=== PATIENT | male | born 1975 | race Caucasian/White ===

== ENCOUNTER 2024-04-19 12:08 | Emergency (ER) | payer OTHER, SELFPAY ==
[2024-04-19 12:22] VITALS: BP 147/78; PULSE 98; RESP 17; TEMP 37.1; O2SAT 97; BMI 54.1
--- NOTE | 2024-04-19 12:30 | DI.US.S_ITS ---
PROCEDURE: US PERIPH VENOUS LOW EXTREM LT INDICATIONS: r/o DVT TECHNIQUE: Real-time imaging, as well as color and pulse Doppler interrogation, were performed of the lower extremity deep veins from the inguinal ligament to the popliteal fossa, with documentation of the visualized calf veins. COMPARISON: None. FINDINGS: The common femoral, femoral, popliteal, and the visualized calf veins are normally compressible, and free of intraluminal thrombus. Color and pulse Doppler demonstrate normal phasic intraluminal flow. There is normal augmentation response to distal compression maneuver. Large suprapatellar fluid collection measures 8.0 x 2.4 x 8.6 cm, probably reflects joint effusion in the suprapatellar recess IMPRESSION: No findings of lower extremity deep venous thrombosis. Approved by: Vikas Harrell M.D. on 04/19/2024 at 13:15
--- NOTE | 2024-04-19 12:39 | ED_ITS ---
HPI - Extremity Problem <Minal Candelaria PA-C - Last Filed: 04/19/24 17:12> General Chief complaint: Extremity Problem,Nontraumatic Stated complaint: knee swelling and px x 4days Time Seen by Provider: 04/19/24 12:30 Source: patient Mode of arrival: Ambulatory History of Present Illness HPI Narrative: 48yo M with hx left leg DVT; morbid obesity presents with left leg pain and swelling behind and lateral to left knee for 3 days. Pain has become quite severe and is affecting his ability to walk. It started as pain behind his left knee right at the bend in the knee and over time now it has progressed to be pain that is more feeling like it is in the joint itself and up above the knee on the left side. 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 He has not had an opportunity to elevate his leg at rest. He describes the pain as a constant ache that feels worse with putting pressure/pressing on his knee on the outside or with walking. He states he had a blood clot in the same leg 3 years ago when he had COVID. He denies any recent travel, long periods of immobility he is a nonsmoker. Also denies shortness of breath recent illness and has otherwise been in his usual state of health. Related Data Previous Rx's Medication Instructions Recorded hydrocodone 5 mg-acetaminophen 325 1 tab PO TID PRN pain 3 days #12 04/19/24 mg tablet tabs prednisone 20 mg tablet 40 mg (2 x 20 mg) PO DAILY 5 days 04/19/24 #10 tabs Allergies Allergy/AdvReac Type Severity Reaction Status Date / Time No Known Drug Allergies Allergy Verified 04/19/24 12:22 Review of Systems <Minal Candelaria PA-C - Last Filed: 04/19/24 17:12> Review of Systems Narrative: See HPI Patient History <Minal Candelaria PA-C - Last Filed: 04/19/24 17:12> Social History Smoking Status: Never smoker Smoking Status: Never smoker Substance Use Type: does not use Exam <Minal Candelaria PA-C - Last Filed: 04/19/24 17:12> Narrative Exam Narrative: GENERAL: 48 year old patient appears stated age. Morbidly obese patient, in mild distress. HEAD: Atraumatic. Normocephalic. EYES: Pupils equal round and reactive. Extraocular motions intact. No scleral icterus. No injection or drainage. ENT: Nose without bleeding, purulent drainage. Airway patent. NECK: Trachea midline. CARDIOVASCULAR: Regular rate and rhythm without murmurs, gallops, or rubs. RESPIRATORY: Clear to auscultation. Breath sounds equal bilaterally. No wheezes, rales, or rhonchi. GASTROINTESTINAL: Abdomen soft, non-tender, nondistended. EXTREMITIES: There is notable swelling superiorly and lateral to the left knee with associated tenderness and very slight warmth present but no erythema noted. There is slight tenderness to the popliteal fossa. There is pain with active range of motion of the left knee. Some pain with passive range of motion but less pronounced. Distal pulses are intact and strong some psoriasis spots noted to the skin of bilateral legs chronic for patient. No rashes, wounds or erythema noted. No edema or joint tenderness. BACK: Nontender without deformity or crepitance. No flank tenderness. NEURO: AOx3. SKIN: See extremities No rash or erythema of visible areas Initial Vital Signs Initial Vital Signs: Vital Signs Temperature 98.7 F 04/19/24 12:22 Pulse Rate 98 H 04/19/24 12:22 Respiratory Rate 17 04/19/24 12:22 Blood Pressure 147/78 H 04/19/24 12:22 Pulse Oximetry 97 04/19/24 12:22 Oxygen Delivery Method Room Air 04/19/24 12:22 <Mac Manrique DO - Last Filed: 04/19/24 17:13> Initial Vital Signs Initial Vital Signs: Vital Signs Temperature 98.7 F 04/19/24 12:22 Pulse Rate 98 H 04/19/24 12:22 Respiratory Rate 17 04/19/24 12:22 Blood Pressure 147/78 H 04/19/24 12:22 Pulse Oximetry 97 04/19/24 12:22 Oxygen Delivery Method Room Air 04/19/24 12:22 Course <Minal Candelaria PA-C - Last Filed: 04/19/24 17:12> Orders Ordered: ED Orders 04/19/24 12:30 US periph venous low extrem lt Stat 04/19/24 14:05 XR knee LT 3V Stat Vital Signs Vital signs: Vital Signs - 8 hr 04/19/24 12:22 04/19/24 16:07 Temperature 98.7 F Pulse Rate 98 H 84 Respiratory Rate 17 20 Blood Pressure 147/78 H 150/93 H Pulse Oximetry 97 94 Oxygen Delivery Method Room Air Room Air <Mac Manrique DO - Last Filed: 04/19/24 17:13> Orders Ordered: ED Orders 04/19/24 12:30 US periph venous low extrem lt Stat 04/19/24 14:05 XR knee LT 3V Stat Vital Signs Vital signs: Vital Signs - 8 hr 04/19/24 12:22 04/19/24 16:07 Temperature 98.7 F Pulse Rate 98 H 84 Respiratory Rate 17 20 Blood Pressure 147/78 H 150/93 H Pulse Oximetry 97 94 Oxygen Delivery Method Room Air Room Air MDM - Extremity (Nontraumatic) <Minal Candelaria PA-C - Last Filed: 04/19/24 17:12> Differential Diagnosis Differential diagnosis: Likely deep vein thrombosis of lower extremity and other (Knee joint effusion, ruptured Velasco's cyst, knee sprain, strain) Imaging Data US - DVT: My Impression: Agree with Radiology interpretation Radiologist's Impression: [place] [address] Ultrasound Report Signed Patient: Faisal Aiken MR#: [id number] : 1975 Acct:[id number] Age/Sex: 48 / M Date of Service: 04/19/24 Loc: ED Accession Number: [id number] Procedure: US periph venous low extrem lt Ordering Provider: Minal Candelaria PA-C PROCEDURE: US PERIPH VENOUS LOW EXTREM LT INDICATIONS: r/o DVT TECHNIQUE: Real-time imaging, as well as color and pulse Doppler interrogation, were performed of the lower extremity deep veins from the inguinal ligament to the popliteal fossa, with documentation of the visualized calf veins. COMPARISON: None. FINDINGS: The common femoral, femoral, popliteal, and the visualized calf veins are normally compressible, and free of intraluminal thrombus. Color and pulse Doppler demonstrate normal phasic intraluminal flow. There is normal augmentation response to distal compression maneuver. Large suprapatellar fluid collection measures 8.0 x 2.4 x 8.6 cm, probably reflects joint effusion in the suprapatellar recess IMPRESSION: No findings of lower extremity deep venous thrombosis. Approved by: Vikas Harrell M.D. on 04/19/2024 at 13:15 Extremity x-ray #1: My Impression: Agree with Radiology interpretation Radiologist's Impression: [address] [address] XRay Report Signed Patient: Faisal Aiken MR#: [id number] : 1975 Acct:[id number] Age/Sex: 48 / M Date of Service: 04/19/24 Loc: ED Accession Number: [id number] Procedure: XR knee LT 3V Ordering Provider: Minal Candelaria PA-C PROCEDURE: XR KNEE LT 3V INDICATIONS: left knee pain; swelling lateral/sup to knee TECHNIQUE: 3 views of the knee were acquired. COMPARISON: None. FINDINGS: Bones: No fractures or dislocations. No suspicious bony lesions. Soft tissues: Large joint effusion. No suspicious soft tissue calcifications. IMPRESSION: Large joint effusion. No fracture Approved by: Vikas Harrell M.D. on 04/19/2024 at 13:45 MDM Narrative Medical decision making narrative: This is a obese 48-year-old male with a history of left leg DVT 3 years ago after COVID infection presenting today with concern for 3 days of left knee pain initially in the popliteal fossa and then progressing to the anterior lateral knee. With associated swelling. No known injury per patient. Ultrasound exam shows no evidence of DVT however he does have a fluid collection/knee joint effusion. X-ray obtained is consistent with this showing a knee joint effusion. There is very slight heat present but no erythema I have low suspicion for an infectious process. His exam is not consistent with a septic arthritis. His vital signs are unremarkable today and he has had absolutely no other symptoms. As he is very overweight/obese suspect it is possible that he may have sustained some trauma/damage to his knee without realizing it. Given that his pain started in the popliteal fossa and then progressed to lateral knee with increased swelling, I am somewhat suspicious for a Velasco cyst with rupture. Recommend he see Orthopedics for further evaluation. Their information is pro vided today in his discharge paperwork. He was placed in crutches and a knee immobilizer given a prescription for prednisone for inflammation and swelling, as well as short course of hydrocodone to be used as needed if Tylenol and ibuprofen are not effective. Strongly advised to elevate his leg as much as possible use Brian wrap or the knee immobilizer for compression. Minimize weight- bearing. Return precautions provided, follow-up plan discussed, all questions answered. Discharge Plan Departure Patient Disposition: Home Clinical Impression: Effusion of knee joint, left Acute knee pain Qualifiers: Laterality: left Qualified Code(s): M25.562 - Pain in left knee Activity Restrictions/Additional Instructions: *You have been diagnosed with [left knee joint effusion] *What to do: *Please continue to take your regular medications as directed. [2] New medication prescriptions sent to your pharmacy: [Prednisone and hydrocodone] [ ] New medication written as a paper prescription [ ] No new medications given *Please follow up with your primary care provider in 2-3 days, call for an appointment. Let them know you were seen in the Emergency Department and that we ask that you be seen in follow up. We will electronically transmit a record of today's note if your PCP is in our system. We performed ultrasound today as well as an x-ray to look at the cause of your left knee pain and swelling. You have a fluid collection there. Based on your exam I think it is very unlikely it is an infection however you definitely have some inflammation and swelling/fluid present there which is causing her pain. We provided you with a knee stabilizer and crutches today I would like you to do your best to stay off of your knee and elevate it when you were at rest and not out up and about, I also would like you to see Orthopedics for further evaluation as you did not sustain any known injury and it would be good to see a specialist for further evaluation of your symptoms. You should call the office number listed below and let them know you want to be seen I also recommend you follow up closely with your primary care provider. If you do develop new or concerning symptoms please make sure you seek re-evaluation. In addition to steroid medicine to help with inflammation and swelling I did prescribe a short course of stronger pain medicine try your Tylenol and ibuprofen or NSAID medication 1st but if you feel you need something stronger you can use a stronger pain medicine. There was no evidence of DVT seen on your ultrasound. I hope you are feeling better soon. *If you do not have a primary care provider please contact the [facility] Resource line at [phone]. They will ask some questions about your medical history and help get you set up with a doctor in the community. *Return to Emergency Department if you should have any new, worsening or concerning symptoms, such as [fever greater than 101 F, shaking chills, worsening pain, persistent vomiting or other bothersome symptoms] Prescriptions: New prednisone 20 mg tablet 40 mg PO DAILY 5 Days Qty: 10 0RF hydrocodone-acetaminophen 5-325 mg tablet 1 tab PO TID PRN (Reason: pain) 3 Days Qty: 12 0RF Referrals: Demario Avila MD [Physician] - (left knee joint effusion no known injury; obese) Miscellaneous,MD Jose [Primary Care Provider] - Stand Alone Forms: Patient Portal/API/Survey ED Sign-out <Mac Manrique DO - Last Filed: 04/19/24 17:13> Cosign ED Attending Cosignature Attestation: Dr Manrique Co-Sign Statement: I was available for consultation during this patient's emergency department visit. This chart is signed by myself for administrative purposes only. I did not have direct contact with this patient during this visit. They were seen independently by the APC.
--- NOTE | 2024-04-19 14:05 | DI.RAD.S_ITS ---
PROCEDURE: XR KNEE LT 3V INDICATIONS: left knee pain; swelling lateral/sup to knee TECHNIQUE: 3 views of the knee were acquired. COMPARISON: None. FINDINGS: Bones: No fractures or dislocations. No suspicious bony lesions. Soft tissues: Large joint effusion. No suspicious soft tissue calcifications. IMPRESSION: Large joint effusion. No fracture Approved by: Vikas Harrell M.D. on 04/19/2024 at 13:45
[2024-04-19 16:07] VITALS: BP 150/93; PULSE 84; RESP 20; O2SAT 94
== END 2024-04-19 16:27 | disposition home or self-care (01) ==
PROVIDERS: Emergency Provider Student in an Organized Health Care Education/Training Program
DX: M25.462 Effusion, left knee (principal); M25.562 Pain in left knee; E66.01 Morbid (severe) obesity due to excess calories; Z68.43 Body mass index [BMI] 50.0-59.9, adult
CPT/HCPCS: 29530; 73562; 93971; 99283

== ENCOUNTER 2024-04-27 12:26 | Emergency (ER) | payer OTHER, SELFPAY ==
[2024-04-27 12:35] VITALS: BP 119/78; PULSE 87; RESP 18; TEMP 36.7; O2SAT 94; BMI 54.1
--- NOTE | 2024-04-27 14:51 | DI.US.S_ITS ---
PROCEDURE: US PERIP VENOUS LOW EXTREM LT INDICATIONS: EDEMA TECHNIQUE: Real-time imaging, as well as color and pulse Doppler interrogation, were performed of the lower extremity deep veins from the inguinal ligament to the popliteal fossa, with documentation of the visualized calf veins. COMPARISON: [facility], , [facility] VENOUS LOW EXTREM LT, 04/19/2024, 13:11. FINDINGS: The common femoral, femoral, popliteal, and the visualized calf veins are normally compressible, and free of intraluminal thrombus. Color and pulse Doppler demonstrate normal phasic intraluminal flow. There is normal augmentation response to distal compression maneuver. IMPRESSION: No findings of lower extremity deep venous thrombosis. Dictated by: Jamin Thomas M.D. on 04/27/2024 at 16:20 Approved by: Jamin Thomas M.D. on 04/27/2024 at 16:20
--- NOTE | 2024-04-27 14:57 | DI.RAD.S_ITS ---
PROCEDURE: XR KNEE LT 3V INDICATIONS: knee pain TECHNIQUE: 3 views of the knee were acquired. COMPARISON: [facility], CR, XR KNEE LT 3V, 04/19/2024, 14:09. FINDINGS: Bones: No fractures or dislocations. No suspicious bony lesions. Soft tissues: There is a large suprapatellar bursa joint effusion. IMPRESSION: Large suprapatellar bursa effusion. Findings have progressed since previous study. Dictated by: Chula Brenner M.D. on 04/27/2024 at 15:30 Approved by: Chula Brenner M.D. on 04/27/2024 at 15:33
--- NOTE | 2024-04-27 17:24 | ED.EXTPRO ---
HPI - Extremity Problem <Luis Carlos Chu PA-C - Last Filed: 04/27/24 17:34> General Chief complaint: Extremity Problem,Nontraumatic Stated complaint: knee px not getting better Time Seen by Provider: 04/27/24 13:41 History of Present Illness HPI Narrative: 48-year-old male returns to the ED for continued left knee pain. patient was seen in the ED on 04/19 for left sided knee pain, had a negative DVT an x-ray that showed a suprapatellar effusion but no fractures or dislocations. Patient was discharged home with hydrocodone and prednisone. Patient followed up with Dr. Avila from ortho on 04/20, he suspected patient's symptoms more most likely from arthritis or gout. He explained to patient that this was not a surgical problem, asked patient to return in 2 weeks to consider a cortisone injection in the knee, since patient was already on oral prednisone. Patient states that he has been wearing a knee immobilizer since he was seen in the ED. Patient states that his knee is painful and stiff when he tries to flex and extend it without the immobilizer. Patient denies numbness, tingling, weakness, fever, chills, swelling, redness. Patient states that he is out of the hydrocodone. Related Data Allergies Allergy/AdvReac Type Severity Reaction Status Date / Time No Known Drug Allergies Allergy Verified 04/19/24 12:22 Review of Systems <Luis Carlos Chu PA-C - Last Filed: 04/27/24 17:34> Constitutional Constitutional: Denies chills, Denies fatigue, Denies fever(s), Denies frequent falls, Denies lethargy and Denies weakness Eyes Eyes: Denies change in vision, Denies eye discharge, Denies irritation and Denies loss of vision ENT Ears, Nose, Mouth, and Throat: Denies change in voice, Denies dizziness, Denies neck pain, Denies sore throat and Denies throat swelling Cardiovascular Cardiovascular: Denies chest pain, Denies irregular heart rhythm, Denies lightheadedness, Denies palpitations, Denies dyspnea, Denies dyspnea on exertion and Denies orthopnea Respiratory Respiratory: Denies cough, Denies dyspnea, Denies dyspnea on exertion and Denies wheezing Gastrointestinal Gastrointestinal: Denies abdominal pain, Denies change in bowel habits, Denies diarrhea, Denies nausea and Denies vomiting Musculoskeletal Musculoskeletal: Denies neck pain and Denies numbness Comments: left knee pain, stiffness Integumentary/Breasts Skin/Breast: Denies pruritus, Denies erythema, Denies rash and Denies wounds Neurologic Neurologic: Denies behavioral changes, Denies confusion, Denies dizziness, Denies frequent falls, Denies loss of vision, Denies numbness and Denies weakness Psychiatric Psychiatric: Denies anxiety, Denies behavioral changes, Denies confusion, Denies depression, Denies homicidal ideation and Denies suicidal ideation Endocrine Endocrine: Denies fatigue, Denies flushing and Denies palpitations Hematologic/Lymphatic Hematologic/Lymphatic: Denies easy bruising Allergic/Immunologic Allergic/Immunologic: Denies urticaria, Denies throat swelling and Denies wheezing Patient History <Luis Carlos Chu PA-C - Last Filed: 04/27/24 17:34> Social History Smoking Status: Never smoker Smoking Status: Never smoker Substance Use Type: does not use Exam <Luis Carlos Chu PA-C - Last Filed: 04/27/24 17:34> Narrative Exam Narrative: Const General:?cooperative, healthy appearing and comfortable [facility] Head:?normal to inspection Ears:?hearing grossly normal bilaterally Nose:?external nose normal Face and sinus:?normal facial exam and sinuses nontender Mouth:?oral mucosae normal Throat:?posterior oropharynx normal Eyes General:?appearance normal, both eyes and all related structures Neck Neck:?normal visual inspection and no lymphadenopathy noted Resp Effort & Inspection:?normal respiratory effort Auscultation:?clear to auscultation bilaterally Cardio Rate:?regular rate Rhythm:?regular rhythm Musculoskeletal no swelling, erythema, tenderness to palpation, warmth. Patient is able to range his knee, although somewhat painful. Neurovascularly intact. Neuro General:?patient alert, patient awake and patient oriented x3 Initial Vital Signs Initial Vital Signs: Vital Signs Temperature 98.0 F 04/27/24 12:35 Pulse Rate 87 04/27/24 12:35 Respiratory Rate 18 04/27/24 12:35 Blood Pressure 119/78 04/27/24 12:35 Pulse Oximetry 94 04/27/24 12:35 Oxygen Delivery Method Room Air 04/27/24 12:35 <Polly Parsons DO - Last Filed: 04/27/24 21:21> Initial Vital Signs Initial Vital Signs: Vital Signs Temperature 98.0 F 04/27/24 12:35 Pulse Rate 87 04/27/24 12:35 Respiratory Rate 18 04/27/24 12:35 Blood Pressure 119/78 04/27/24 12:35 Pulse Oximetry 94 04/27/24 12:35 Oxygen Delivery Method Room Air 04/27/24 12:35 Course <Luis Carlos Chu PA-C - Last Filed: 04/27/24 17:34> Orders Ordered: ED Orders 04/27/24 14:51 US periph venous low extrem lt Stat 04/27/24 14:57 XR knee LT 3V Stat Vital Signs Vital signs: Vital Signs - 8 hr 04/27/24 17:25 Temperature 98 F Pulse Rate 87 Respiratory Rate 15 Blood Pressure 131/75 Pulse Oximetry 99 <Polly Parsons DO - Last Filed: 04/27/24 21:21> Orders Ordered: ED Orders 04/27/24 14:51 US periph venous low extrem lt Stat 04/27/24 14:57 XR knee LT 3V Stat Vital Signs Vital signs: Vital Signs - 8 hr 04/27/24 17:25 Temperature 98 F Pulse Rate 87 Respiratory Rate 15 Blood Pressure 131/75 Pulse Oximetry 99 MDM - Extremity (Nontraumatic) <SANTIAGO Macias Last Filed: 04/27/24 17:34> MDM Narrative Medical decision making narrative: 48-year-old male returns to the ED for continued left knee pain. obtained x-ray and ultrasound today. Ultrasound was negative for DVT or other. x-ray shows a large suprapatellar bursa effusion, findings have progressed since previous study. Low suspicion for septic bursitis, given no warmth, erythema, fevers, limited range of motion. Patient is able to range his knee, however states it is stiff and painful. It is likely that his knee feels stiff since he has been using the immobilizer for the last week. Advised patient discontinue the immobilizer, and range his knee more and exercise it. Recommend RICE, heat compresses, ibuprofen. Recommend follow-up with ortho as soon as possible. ED return precautions were discussed with patient. Patient verbalized understanding. Medical records reviewed: Yes Discharge Plan Departure Patient Disposition: Home Clinical Impression: Bursitis Qualifiers: Bursitis location: knee Knee bursitis location: suprapatellar bursitis Laterality: left Qualified Code(s): M70.52 - Other bursitis of knee, left knee Instructions: DI for Bursitis Activity Restrictions/Additional Instructions: You were evaluated in the ED today for left-sided knee pain. Your ultrasound did not show any DVTs or other abnormalities. The x-ray shows a large suprapatellar bursa effusion. it does not appear infected.Treatment for this is rest, ibuprofen 800 mg every 8 hours with food. Please follow-up with Dr. Avila from [facility] as soon as possible. Return to the ED if you have worsening symptoms, fevers, chills. Referrals: Miscellaneous,Doctor, MD [Primary Care Provider] - Stand Alone Forms: Patient Portal/API/Survey ED Sign-out <Polly Parsons DO - Last Filed: 04/27/24 21:21> Cosign ED Attending Lori Attestation: I was available for consultation.
[2024-04-27 17:25] VITALS: BP 131/75; PULSE 87; RESP 15; TEMP 36.6; O2SAT 99
== END 2024-04-27 17:26 | disposition home or self-care (01) ==
PROVIDERS: Emergency Provider Student in an Organized Health Care Education/Training Program
DX: M70.52 Other bursitis of knee, left knee (principal)
CPT/HCPCS: 73562; 93971; 99283